=== PATIENT | male | born 1975 | race Caucasian/White ===

== ENCOUNTER 2017-08-01 08:36 | Emergency (ER) | payer MEDICARE, MEDICAID ==
--- NOTE | 2017-08-01 09:22 | ED Physician Chart ---
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 The patient was brought to ER for further evaluation. Allergies:: Allergies Allergy/AdvReac Type Severity Reaction Status Date / Time erythromycin base Allergy Verified 08/01/17 08:56 Vitals:: Vital Signs - 8 hr 08/01/17 09:00 Temp 99.7 F HR 117 RR 22 BP 143/92 O2 Sat % 98 ED Review of Systems - Review of Systems General/Constitutional: No fever Skin: No rash Head: No headache Eyes: No pain ENT: No nasal drainage Neck: No neck pain Cardio Vascular: No chest pain Pulmonary: No SOB GI: Nausea, Vomiting, Pain Musculoskeletal: No bone or joint pain Neurological: No seizure ED Past Medical History - Past Medical History Past Medical History: Other (Ras syndrome, , 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, autism, ) Social History: Non Smoker, No Alcohol, No Drug Use Surgical History: other (Right eye surgery) ED Physical Exam - Physical Examination General/Constitutional: Awake, Alert Head: Atraumatic Eyes: PERRL Skin: No skin lesions ENMT: Nasal exam nl Neck: No nuchal rigidity Respiratory: Clear to Auscultation, No Wheeze/Rhonchi/Rales Cardio Vascular: RRR, No murmur, gallop, rubs, NL S1 S2 GI: Nondistended Other GI comments:: Epigastric tenderness Extremities: normal strength in all extremities Neuro/Psych: No focal deficits ED Assessment - Assessment General Assessment: Dehydration Gastritis Hypokalemia Hyponatremia Assessment/Comments:: CBC, CMP CXR: EKG KCL 40mEq po NS 1L IV bolus Pantoprazole IV Zofran D/c home F/u PCP or return to ER if symptoms worsen ED Septic Shock - . Is Septic Shock (SBP<90, OR Lactate>4 mmol\L) present?: No - <6hrs of presentation: Vital Signs: Vital Signs - 8 hr 08/01/17 09:00 Temp 99.7 F HR 117 RR 22 BP 143/92 O2 Sat % 98 ED Reassessment (Disposition) - Reassessment Reassessment Condition:: Improved - Patient Disposition Discharge/Transfer:: Home ED Discharge Plan - Patient Disposition Admit/Discharge/Transfer: PT DISCHARGED HOME Prescriptions: Pantoprazole [Protonix] 40 mg PO DAILY #30 ect Instructions: Gastritis, Adult, [id number], Dehydration, Adult, [id number]
[2017-08-01 09:46] LABS: % BASOPHILS 0.1 % (0.0-2.0); % EOSINOPHILS 0.2 % (0.0-5.0); % MONOCYTES 12.8 % (2.0-10.0); % NEUTROPHILS 60.9 % (40.0-80.0); HEMATOCRIT 53.4 % (41.0-60); HEMOGLOBIN 18.1 gm/dL (12-16); LYMPHOCYTE ABSOLUTE 1.9 Th/cmm (1.5-3.0); MEAN CELL VOLUME 93.9 fl (80-99); MEAN CORPUSCULAR HEMOGLOBIN 31.9 pg (26.0-30.0); MEAN CORPUSCULAR HGB CONC 33.9 pg (28.0-36.0); MONOCYTE ABSOLUTE 0.9 Th/cmm (0.3-1.0); NEUTROPHILE ABSOLUTE 4.6 Th/cmm (1.8-8.0); PLATELET COUNT 214 Th/cmm (150-400); RED BLOOD COUNT 5.69 Mil/cmm (4.30-5.70); RED CELL DISTRIBUTION WIDTH 12.1 % (11.5-20.0); WHITE BLOOD COUNT 7.4 Th/cmm (4.8-10.8)
[2017-08-01 10:03] LABS: ALB/GLOB RATIO 2.2 (1.0-1.8); ALBUMIN 5.5 gm/dL (4.2-5.5); ALKALINE PHOSPHATASE 46 U/L (34-104); BILIRUBIN,TOTAL 1.7 mg/dL (0.3-1.0); BUN - UREA NITROGEN 24 mg/dL (7-25); CALCIUM SERUM 10.4 mg/dL (8.6-10.3); CARBON DIOXIDE 24.9 mEq/L (21.0-31.0); CHLORIDE 89 mEq/L (98-107); CREATININE - SERUM 0.9 mg/dL (0.7-1.3); GFR AFRICAN-AMERICAN > 60.0 ml/min (>90); GFR NON AFRICAN-AMERICAN > 60.0 ml/min; GLUCOSE 114 mg/dL (70-105); SGOT 13 U/L (13-39); SGPT/ALT 8 U/L (7-52); SODIUM SERUM 131 mEq/L (136-145)
[2017-08-01 10:05] LABS: POTASSIUM SERUM 2.9 mEq/L (3.5-5.1)
[2017-08-01] MEDS ORDERED: Potassium Chloride 20 mEq ER Tab PO ONE ×2 (10:07→10:17)
[2017-08-01] MEDS ORDERED: Sodium Chloride 0.9% 1,000 ML IV ONE (10:08)
--- NOTE | 2017-08-01 10:14 | Diagnostic Imaging Report ---
Portable chest x-ray Time: 1008 History: Shortness of breath Allowing for portable technique the heart size is normal. No focal pulmonary parenchymal processes. No hilar or mediastinal abnormalities. Impression: No acute abnormalities.
[2017-08-01 12:28] LABS: AMYLASE SERUM 74 U/L (29-103); LIPASE 72 U/L (11-82)
[2017-08-02] MEDS ORDERED: Pantoprazole 40 mg EC Tab PO SCH (09:00)
== END 2017-08-01 14:45 | disposition home or self-care (01) ==
LOC: ER 08:36
DX: E86.0 Dehydration (principal); K29.70 Gastritis, unspecified, without bleeding; E87.6 Hypokalemia; E87.1 Hypo-osmolality and hyponatremia
CPT/HCPCS: 99285; 93005; 71045; 84484; 83880; 36415; 85025; 82150; 83690; 80053; C9113; Q0162; J7030